=== PATIENT | male | born 1945 | race Caucasian/White ===

== ENCOUNTER 2018-05-24 17:58 | Inpatient (IN) ==
[2018-05-24] MEDS ORDERED: methylPREDNISolone 125 MG/2 ML VIAL IVP ONE (18:00)
[2018-05-24] MEDS ORDERED: Ipratropium/Albuterol Neb 3 ML IH ONE ×2 (18:00→19:05)
[2018-05-24 18:24] LABS: Basophils % 0.5 %; Eosinophils # 0.2 K/mcL (0.0-0.6); Eosinophils % 1.9 %; Hematocrit 40.3 % (37.5-50.1); Hemoglobin 14.1 g/dL (12.9-16.9); Immature Granulocytes % 0.4 % (0-4); Lymphocytes # 1.7 K/mcL (0.6-4.6); Lymphocytes % 20.6 %; Mean Corpuscular Volume 97.1 fL (83.0-100.0); Monocytes # 0.7 K/mcL (0.0-1.3); Monocytes % 7.9 %; Neutrophils # 5.7 K/mcL (1.6-8.9); Platelet Count 158 K/mcL (140-400); Red Blood Count 4.15 M/mcL (4.19-5.50); Red Cell Distribution Width 13.6 % (11.5-14.5); Segmented Neutrophils % 68.7 %
[2018-05-24 18:35] LABS: INR 1.2; Prothrombin Time 13.8 Seconds (9.4-12.1)
--- NOTE | 2018-05-24 18:37 | Emergency Department Note ---
Disposition Clinical Impression: Community acquired pneumonia Qualifiers: Laterality: left Lung location: lower lobe of lung Qualified Code(s): J18.1 - Lobar pneumonia, unspecified organism Disposition: Admitted As Inpatient Condition: Fair Referrals: Nick Erwin MD [Primary Care Provider] - Forms: ED Satisfaction Letter Time of Disposition: 20:02 General Adult HPI - General Stated complaint: fLU LIKE SYMPTOMS Time Seen by Provider: 05/24/18 18:00 Source: patient Mode of arrival: EMS Limitations: no limitations Nursing Notes Reviewed: Yes Vital Signs Reviewed: Yes - History of Present Illness HPI Narrative: Patient is a 73-year-old male presenting with difficulty breathing. Patient was brought in via EMS from home for concern of shortness of breath that is been progressively worsening over the past few days. He has had some myalgias with subjective fevers and chills. Patient reports increased cough with sputum production. Has history of COPD. No abdominal pain, nausea, vomiting. No urinary changes are still changes. Per EMS, patient was satting at 85% on room air, did place him on 2 L nasal cannula, he was brought up to 96. Patient does not wear oxygen at home. Patient did have one episode of emesis while in route, he was given 4 of Zofran. No further nausea or vomiting. Patient denies chest pain, radiation of pain, no back pain, no lightheaded or dizziness. No recent steroid use. He does use his inhalers at home. - Related Data Home Medications Medication Instructions Recorded Confirmed Albuterol Sulfate [Albuterol 2 puff IH QID PRN 02/24/15 03/16/18 Inhaler] Atorvastatin [Lipitor] 40 mg PO HS 02/24/15 03/16/18 Budesonide/Formoterol 160/4.5 2 puff IH BIDR 02/24/15 03/16/18 [Symbicort] Cholecalciferol (Vitamin D3) 2,000 unit PO DAILY 02/24/15 03/16/18 [Vitamin D] Finasteride [Proscar] 5 mg PO DAILY 02/24/15 03/16/18 Levothyroxine [Synthroid] 50 mcg PO DAILY 02/24/15 03/16/18 Omeprazole [PriLOSEC] 20 mg PO DAILY 02/24/15 03/16/18 Tamsulosin [Flomax] 0.4 mg PO DAILY 02/24/15 03/16/18 Cyanocobalamin (Vitamin B-12) 1,000 mcg PO DAILY 03/17/17 03/16/18 [Vitamin B12] Multivitamin [Multivitamins] 1 each PO DAILY 03/17/17 03/16/18 Amantadine [Symmetrel] 100 mg PO BID 03/16/18 03/16/18 Allergies Allergy/AdvReac Type Severity Reaction Status Date / Time No Known Allergies Allergy Verified 03/16/18 11:08 All systems ED: reviewed and negative except as stated. Review of Systems: As Per HPI Constitutional: Reports: fever, chills ENT ED: Denies: congestion Cardiovascular: Reports: dyspnea on exertion. Denies: chest pain, palpitations, syncope Respiratory: Reports: cough, dyspnea, wheezes, sputum production. Denies: hemoptysis Gastrointestinal: Denies: abdominal pain, nausea, vomiting Genitourinary: Denies: urgency Musculoskeletal: Denies: back pain Integumentary: Denies: rash Neurological: Denies: headache, weakness, confusion Endocrine: Denies: fatigue Hematological/Lymphatic: Denies: easy bleeding Past Medical History - Past Medical History Attestation: Yes The following information was validated with the patient. Source: patient Medical history: Reports: asthma, cancer, COPD, dementia, GERD, hyperlipidemia, hypertension Surgical history: Reports: cholecystectomy Psychiatric history: Reports: no psych history - Social History Smoking Status: Former smoker Alcohol use: Reports: none Drug use: Reports: none Physical Exam - General Limitations: no limitations General appearance: alert, in no apparent distress, other (Patient on 2 L nasal cannula, satting at 98%, is conversationally dyspneic) - Head Head exam: atraumatic, normocephalic, normal inspection - Eye Eye exam: Present: normal appearance, PERRL, EOMI - ENT ENT exam: normal exam, normal oropharynx, mucous membranes moist - Neck Neck exam: Present: normal inspection, full ROM, trachea midline - Chest Chest inspection: Present: normal inspection, symmetric chest wall rise - Respiratory Respiratory exam: Present: other (Diffuse rhonchi throughout to the bases bilaterally, with few wheezes, prolonged expiratory phase) - Cardiovascular Cardiovascular exam: Present: regular rate, normal rhythm, normal heart sounds - Abdominal Exam Abdominal exam: Present: soft, Non-Tender. Absent: tenderness, distention, guarding, rebound, rigidity - Extremities Exam Extremities exam: Present: normal inspection, full ROM. Absent: tenderness, pedal edema - Expanded Lower Extremity Exam Neurovascular/Tendon exam: Absent: motor deficit, sensory deficit, tendon deficit - Back Exam Back exam: Present: normal inspection, full ROM. Absent: tenderness - Neurological Exam Neurological exam: Present: alert, oriented X3 - Psychiatric Psychiatric exam: Present: normal affect, normal mood - Skin Skin exam: Present: warm, dry, intact, normal color. Absent: diaphoresis Course Vital Signs Temperature 98 F 05/24/18 18:16 Pulse Rate 95 05/24/18 18:16 Respiratory Rate 16 05/24/18 18:16 Blood Pressure 143/83 05/24/18 18:16 O2 Sat by Pulse Oximetry 96 05/24/18 18:16 Temperature 98 F 05/24/18 18:20 Pulse Rate 128 05/24/18 20:50 Respiratory Rate 20 05/24/18 20:58 Blood Pressure 121/65 05/24/18 20:58 O2 Sat by Pulse Oximetry 97 05/24/18 20:58 Oxygen Delivery Oxygen Delivery Nasal Cannula Medical Decision Making - [facility] Narrative Medical decision making narrative: Patient is a 73-year-old male presenting with difficulty breathing. Patient with history of COPD. Patient was brought in via EMS, given 1 DuoNeb as well as Zofran. On arrival, patient is on 2 L nasal cannula with an oxygen saturation of 98%. He is afebrile and normotensive. He is in no acute distress. Patient was given DuoNeb 3 with Solu-Medrol. Concern for COPD versus pneumonia. Chest x-ray shows left lower lobe pneumonia, patient was started on azithromycin and Rocephin. Patient is not on home oxygen. Influenza was obtained. CBC shows no leukocytosis otherwise blood work is unremarkable. On reevaluation, patient states that he still has some shortness of breath, however has slightly improved following treatment. Patient failed his walk test due to symptoms as well as desaturation down to 84% and weakness. At this point in time, patient will be admitted for pneumonia, with increased oxygen need. We will call the hospitalist at this point in time. - Medical Records Medical records reviewed: Yes I reviewed the patient's medical records. - Lab Data Lab results reviewed: Yes I reviewed the patient's lab results. Result diagrams: 05/24/18 18:14 05/24/18 18:14 Lab Results 05/24/18 05/24/18 05/24/18 Range/Units 18:14 18:14 18:14 WBC 8.3 (4.3-11.1) K/mcL RBC 4.15 L (4.19-5.50) M/mcL Hgb 14.1 (12.9-16.9) g/dL Hct 40.3 (37.5-50.1) % MCV 97.1 (83.0-100.0) fL MCH 34.0 H (28.0-33.3) pg MCHC 35.0 (31.6-35.5) g/dL RDW 13.6 (11.5-14.5) % Plt Count 158 (140-400) K/mcL MPV 9.0 L (9.4-12.4) fL Immature Gran % 0.4 (0-4) % Seg Neutrophils % 68.7 % Lymphocytes % 20.6 % Monocytes % 7.9 % Eosinophils % 1.9 % Basophils % 0.5 % Neutrophils # 5.7 (1.6-8.9) K/mcL Lymphocytes # 1.7 (0.6-4.6) K/mcL Monocytes # 0.7 (0.0-1.3) K/mcL Eosinophils # 0.2 (0.0-0.6) K/mcL Basophils # 0.0 (0.0-0.2) K/mcL PT (9.4-12.1) Seconds INR APTT (26.0-36.0) Seconds Sodium 139 (136-145) mEq/L Potassium 3.6 (3.5-5.1) mEq/L Chloride 104 (98-107) mEq/L Carbon Dioxide 25 (23-29) mEq/L BUN 18 (8-23) mg/dL Creatinine 1.11 (0.70-1.30) mg/dL Est GFR ( Amer) > 60 (> 60) Est GFR (Non-Af Amer) > 60 (> 60) BUN/Creatinine Ratio 16 (6-26) Glucose 169 H (70-105) mg/dL Calculated Osmolality 294 (280-300) Lactic Acid 2.1 (0.5-2.2) mmol/L Calcium 9.0 (8.6-10.3) mg/dL Troponin I < 0.03 (< 0.04) ng/mL B-Natriuretic Peptide (Less than 100) pg/mL 05/24/18 05/24/18 05/24/18 Range/Units 18:14 18:14 19:58 WBC (4.3-11.1) K/mcL RBC (4.19-5.50) M/mcL Hgb (12.9-16.9) g/dL Hct (37.5-50.1) % MCV (83.0-100.0) fL MCH (28.0-33.3) pg MCHC (31.6-35.5) g/dL RDW (11.5-14.5) % Plt Count (140-400) K/mcL MPV (9.4-12.4) fL Immature Gran % (0-4) % Seg Neutrophils % % Lymphocytes % % Monocytes % % Eosinophils % % Basophils % % Neutrophils # (1.6-8.9) K/mcL Lymphocytes # (0.6-4.6) K/mcL Monocytes # (0.0-1.3) K/mcL Eosinophils # (0.0-0.6) K/mcL Basophils # (0.0-0.2) K/mcL PT 13.8 H (9.4-12.1) Seconds INR 1.2 APTT 29.9 (26.0-36.0) Seconds Sodium (136-145) mEq/L Potassium (3.5-5.1) mEq/L Chloride (98-107) mEq/L Carbon Dioxide (23-29) mEq/L BUN (8-23) mg/dL Creatinine (0.70-1.30) mg/dL Est GFR ( Amer) (> 60) Est GFR (Non-Af Amer) (> 60) BUN/Creatinine Ratio (6-26) Glucose (70-105) mg/dL Calculated Osmolality (280-300) Lactic Acid 1.5 (0.5-2.2) mmol/L Calcium (8.6-10.3) mg/dL Troponin I (< 0.04) ng/mL B-Natriuretic Peptide 25 (Less than 100) pg/mL - Radiology Data Radiology results reviewed: Yes I reviewed the patient's radiology results. Chest X-Ray 05/24/18 18:00 IMPRESSION: Atelectasis versus pneumonia in the left lung base D/ / Sean Shannon MD / Sean Shannon MD Interpreting Provider: Sean Shannon MD - EKG Data EKG #1 EKG attestation: Yes I reviewed and interpreted this EKG. EKG results narrative: EKG performed at 1806 a ventricular rate of 91, regular rhythm, normal axis, no ST segment elevation or depression S.B.A.R. - S.B.A.R. Situation: Demographics, MOA Background: Presenting Complaint, Relevant PMH, Meds, & Allergies Assessment: Vital Signs, Course and respsone to treatment, Exam Concerns, Patient/Family Expectation, Pertinant Lab Results, Outstanding Labs Recommendation: Barrier(s) to disposition, Recommendation based on pending studies, treatments, or consults S.B.A.R. Report Given to: Dr. Harmon [email or web address] Repor Time: 21:22 (accepted)
[2018-05-24 18:38] LABS: Activated Partial Thrombo Time 29.9 Seconds (26.0-36.0)
[2018-05-24 18:48] LABS: BUN/Creatinine Ratio 16 (6-26); Blood Urea Nitrogen 18 mg/dL (8-23); Carbon Dioxide 25 mEq/L (23-29); Chloride 104 mEq/L (98-107); Glucose 169 mg/dL (70-105); Osmolality,Calculated 294 (280-300); Potassium 3.6 mEq/L (3.5-5.1); Sodium 139 mEq/L (136-145); Troponin I < 0.03 ng/mL (< 0.04); eGFR For Non-African Americans > 60 (> 60)
--- NOTE | 2018-05-24 18:56 | Emergency Department Note ---
Disposition Clinical Impression: Community acquired pneumonia Qualifiers: Laterality: left Lung location: lower lobe of lung Qualified Code(s): J18.1 - Lobar pneumonia, unspecified organism Disposition: Still a Patient Referrals: Nick Erwin MD [Primary Care Provider] - General Adult HPI - General Chief complaint: ED Chest Pain Stated complaint: cp Time Seen by Provider: 05/24/18 18:00 Source: patient Mode of arrival: EMS Limitations: no limitations Nursing Notes Reviewed: Yes Vital Signs Reviewed: Yes - History of Present Illness HPI Narrative: Attestation note: Patient was seen with the emergency medicine resident/nurse pra ctitioner/physician orthopedic assistant/transitional resident/medical student: Dr. Mariluz Villasenor I have personally performed a face to face evaluation on this patient. I have reviewed and agree with history and physical examination patient management and disposition. Briefly the salient points of the case are as follows: 73-year-old male history of COPD by EMS for "chest". Patient presents with shortness of breath he was having low sats in the mid 80s WITH oxygen and do an echo to hear rhonchi as well chest x-ray read radiology left lower lobe pneumonia patient's troponin and labs otherwise normal limits EKG shows no acute ischemic changes patient is getting antibiotics admission likely although disposition pending. Pain Scale: 9 - Related Data Home Medications Medication Instructions Recorded Confirmed Albuterol Sulfate [Albuterol 2 puff IH QID PRN 02/24/15 03/16/18 Inhaler] Atorvastatin [Lipitor] 40 mg PO HS 02/24/15 03/16/18 Budesonide/Formoterol 160/4.5 2 puff IH BIDR 02/24/15 03/16/18 [Symbicort] Cholecalciferol (Vitamin D3) 2,000 unit PO DAILY 02/24/15 03/16/18 [Vitamin D] Finasteride [Proscar] 5 mg PO DAILY 02/24/15 03/16/18 Levothyroxine [Synthroid] 50 mcg PO DAILY 02/24/15 03/16/18 Omeprazole [PriLOSEC] 20 mg PO DAILY 02/24/15 03/16/18 Tamsulosin [Flomax] 0.4 mg PO DAILY 02/24/15 03/16/18 Cyanocobalamin (Vitamin B-12) 1,000 mcg PO DAILY 03/17/17 03/16/18 [Vitamin B12] Multivitamin [Multivitamins] 1 each PO DAILY 03/17/17 03/16/18 Amantadine [Symmetrel] 100 mg PO BID 03/16/18 03/16/18 Allergies Allergy/AdvReac Type Severity Reaction Status Date / Time No Known Allergies Allergy Verified 03/16/18 11:08 Constitutional: Reports: fever, chills ENT ED: Denies: congestion Cardiovascular: Reports: dyspnea on exertion. Denies: chest pain, palpitations, syncope Respiratory: Reports: cough, dyspnea, wheezes, sputum production. Denies: hemoptysis Gastrointestinal: Denies: abdominal pain, nausea, vomiting Genitourinary: Denies: urgency Musculoskeletal: Denies: back pain Integumentary: Denies: rash Neurological: Denies: headache, weakness, confusion Endocrine: Denies: fatigue Hematological/Lymphatic: Denies: easy bleeding Past Medical History - Past Medical History Medical history: Reports: asthma, cancer, COPD, dementia, GERD, hyperlipidemia, hypertension Surgical history: Reports: cholecystectomy Psychiatric history: Reports: no psych history - Social History Smoking Status: Former smoker Smokeless Tobacco Status: No Alcohol use: Reports: none Drug use: Reports: none Physical Exam - General Limitations: no limitations General appearance: alert, in no apparent distress Course Vital Signs Temperature 98 F 05/24/18 18:16 Pulse Rate 95 05/24/18 18:16 Respiratory Rate 16 05/24/18 18:16 Blood Pressure 143/83 05/24/18 18:16 O2 Sat by Pulse Oximetry 96 05/24/18 18:16 Temperature 98 F 05/24/18 18:20 Pulse Rate 95 05/24/18 18:20 Respiratory Rate 22 05/24/18 18:43 Blood Pressure 143/83 05/24/18 18:20 O2 Sat by Pulse Oximetry 97 05/24/18 18:43 Oxygen Delivery Oxygen Delivery Nasal Cannula Medical Decision Making - Lab Data Result diagrams: 05/24/18 18:14 05/24/18 18:14 Lab Results 05/24/18 05/24/18 05/24/18 Range/Units 18:14 18:14 18:14 WBC 8.3 (4.3-11.1) K/mcL RBC 4.15 L (4.19-5.50) M/mcL Hgb 14.1 (12.9-16.9) g/dL Hct 40.3 (37.5-50.1) % MCV 97.1 (83.0-100.0) fL MCH 34.0 H (28.0-33.3) pg MCHC 35.0 (31.6-35.5) g/dL RDW 13.6 (11.5-14.5) % Plt Count 158 (140-400) K/mcL MPV 9.0 L (9.4-12.4) fL Immature Gran % 0.4 (0-4) % Seg Neutrophils % 68.7 % Lymphocytes % 20.6 % Monocytes % 7.9 % Eosinophils % 1.9 % Basophils % 0.5 % Neutrophils # 5.7 (1.6-8.9) K/mcL Lymphocytes # 1.7 (0.6-4.6) K/mcL Monocytes # 0.7 (0.0-1.3) K/mcL Eosinophils # 0.2 (0.0-0.6) K/mcL Basophils # 0.0 (0.0-0.2) K/mcL PT (9.4-12.1) Seconds INR APTT (26.0-36.0) Seconds Sodium 139 (136-145) mEq/L Potassium 3.6 (3.5-5.1) mEq/L Chloride 104 (98-107) mEq/L Carbon Dioxide 25 (23-29) mEq/L BUN 18 (8-23) mg/dL Creatinine 1.11 (0.70-1.30) mg/dL Est GFR ( Amer) > 60 (> 60) Est GFR (Non-Af Amer) > 60 (> 60) BUN/Creatinine Ratio 16 (6-26) Glucose 169 H (70-105) mg/dL Calculated Osmolality 294 (280-300) Lactic Acid 2.1 (0.5-2.2) mmol/L Calcium 9.0 (8.6-10.3) mg/dL Troponin I < 0.03 (< 0.04) ng/mL 05/24/18 Range/Units 18:14 WBC (4.3-11.1) K/mcL RBC (4.19-5.50) M/mcL Hgb (12.9-16.9) g/dL Hct (37.5-50.1) % MCV (83.0-100.0) fL MCH (28.0-33.3) pg MCHC (31.6-35.5) g/dL RDW (11.5-14.5) % Plt Count (140-400) K/mcL MPV (9.4-12.4) fL Immature Gran % (0-4) % Seg Neutrophils % % Lymphocytes % % Monocytes % % Eosinophils % % Basophils % % Neutrophils # (1.6-8.9) K/mcL Lymphocytes # (0.6-4.6) K/mcL Monocytes # (0.0-1.3) K/mcL Eosinophils # (0.0-0.6) K/mcL Basophils # (0.0-0.2) K/mcL PT 13.8 H (9.4-12.1) Seconds INR 1.2 APTT 29.9 (26.0-36.0) Seconds Sodium (136-145) mEq/L Potassium (3.5-5.1) mEq/L Chloride (98-107) mEq/L Carbon Dioxide (23-29) mEq/L BUN (8-23) mg/dL Creatinine (0.70-1.30) mg/dL Est GFR ( Amer) (> 60) Est GFR (Non-Af Amer) (> 60) BUN/Creatinine Ratio (6-26) Glucose (70-105) mg/dL Calculated Osmolality (280-300) Lactic Acid (0.5-2.2) mmol/L Calcium (8.6-10.3) mg/dL Troponin I (< 0.04) ng/mL
[2018-05-24] MEDS ORDERED: Azithromycin 500 MG in D5% in Water 250 ML IVPB ONE (19:01)
[2018-05-24] MEDS ORDERED: cefTRIAXone 1,000 MG in Water for inj. (sterile) 20 ML 10 ML IVP ONE (19:01)
[2018-05-25] MEDS ORDERED: Naloxone 0.4 MG/ML INJ IVP PRN (05:43)
[2018-05-25] MEDS ORDERED: Albuterol 2.5 MG/3 ML NEBULIZER IH PRN (05:46)
--- NOTE | 2018-05-25 05:52 | Internal Med History&Physical ---
Date of Encounter: 05/25/18 Time of Encounter: 03:57 Internal Medicine - H&P: HPI Chief complaint: Left lower lobe pneumonia Admitted From: Emergency Dept Plans for Post Hospital Care: Home History of present illness: Mr. Auguste is a 73 year old male Patient presented to the emergency room for difficulty breathing he called emergency medical services as he became more short of breath that has been progressing over the last few days he also states that he has had fevers and chills at home. Has had increased sputum production with his cough and has a history of COPD. Upon arrival EMS noted that patient's room air saturation was 85% and is placed on 2 L nasal cannula and he improved to 96%. He is not typically wear home oxygen. Patient vomited once en route to the emergency room, and was given 4 mg of Zofran. In the emergency room patient's CBC and BMP were both within normal limits. Patient's vital signs were stable. Patient's initial lactic acid was 2.1 which improved to 1.5 with IV fluids. Patient's initial troponin was undetectable and patient's BNP was 25. Patient's chest x-ray showed atelectasis versus pneumonia in the left lung base. Patient was given azithromycin and ceftriaxone prior to blood cultures being drawn, and was sent to the medical floor for further management. Upon my evaluation, patient is resting comfortably in the hospital bed, he denies chest pain, abdominal pain, nausea, vomiting, diarrhea and constipation. His main complaint currently is thirst. He states he has had a cough for about a week, and denies sick contacts. Past Med Surg Social Fam HX - Past Medical History Medical history: asthma, cancer, COPD, dementia, GERD, hyperlipidemia, hypertension, thyroid disease Additional medical history: Thyroid. Testicular Cancer, parkinson Psychiatric history: no psych history - Past Surgical History Surgical History: cholecystectomy Additional surgical history: Tonils. Orchiectomy. Testicular CA - Social History Smoking Status: Former smoker Smokeless Tobacco Status: No Alcohol use: none Drug use: none - Family History Father Living Status: Hx Family Cancer: Yes Hx Family GI Disorders: Yes Internal Medicine - H&P: Meds Albuterol Sulfate [Albuterol Inhaler] 2 puff IH QID PRN 02/24/15 [History] Atorvastatin [Lipitor] 40 mg PO HS 02/24/15 [History] Budesonide/Formoterol 160/4.5 [Symbicort] 2 puff IH BIDR 02/24/15 [History] Cholecalciferol (Vitamin D3) [Vitamin D] 2,000 unit PO DAILY 02/24/15 [History] Finasteride [Proscar] 5 mg PO DAILY 02/24/15 [History] Levothyroxine [Synthroid] 50 mcg PO DAILY 02/24/15 [History] Omeprazole [PriLOSEC] 20 mg PO DAILY 02/24/15 [History] Tamsulosin [Flomax] 0.4 mg PO DAILY 02/24/15 [History] Cyanocobalamin (Vitamin B-12) [Vitamin B12] 1,000 mcg PO DAILY 03/17/17 [History] Multivitamin [Multivitamins] 1 each PO DAILY 03/17/17 [History] Amantadine [Symmetrel] 100 mg PO BID 03/16/18 [History] Allergy/AdvReac Type Severity Reaction Status Date / Time No Known Allergies Allergy Verified 03/16/18 11:08 All Systems PM: A 10-system review of systems was performed and is negative for pertinent find ings except as documented above in the HPI. - Constitutional Vitals: Temp Pulse Resp BP Pulse Ox 97.4 F L 75 18 133/78 96 05/25/18 03:44 05/25/18 03:44 05/25/18 03:44 05/25/18 03:44 05/25/18 03:44 General appearance: Present: cooperative, A&O X 3, pleasant, no acute distress, answers questions appropriately Exam: - - Head Head exam: Present: normal inspection - Eye Eye exam: Present: EOMI, normal appearance - Respiratory Respiratory exam: Present: wheezes. Absent: CTAB, rales, respiratory distress, rhonchi - Cardiovascular Cardiovascular exam: Present: RRR. Absent: diastolic murmur, systolic murmur - GI/Abdominal GI/Abdominal exam: Present: normal bowel sounds, soft. Absent: tenderness - Extremities Exam Extremities exam: Present: warm, radial pulses palpable and symmetrical. Absent: calf tenderness, pedal edema, tenderness - Neurological Exam Neurological exam: Present: no focal deficits, strengths equal and symetr throughout. Absent: motor sensory deficit, facial droop, speech deficit - Skin Skin exam: Present: dry, normal color, warm Internal Med - H&P Results - Labs CBC & Chem 7: 05/24/18 18:14 05/24/18 18:14 Labs: Short CBC 05/24/18 Range/Units 18:14 WBC 8.3 (4.3-11.1) K/mcL Hgb 14.1 (12.9-16.9) g/dL Hct 40.3 (37.5-50.1) % Plt Count 158 (140-400) K/mcL Neutrophils # 5.7 (1.6-8.9) K/mcL BMP 05/24/18 18:14 Sodium 139 Potassium 3.6 Chloride 104 Carbon Dioxide 25 BUN 18 Creatinine 1.11 Glucose 169 H Calcium 9.0 Cardiac Enzymes 05/24/18 Range/Units 18:14 Troponin I < 0.03 (< 0.04) ng/mL - Impressions ITS Impressions Chest X-Ray 05/24/18 18:00 IMPRESSION: Atelectasis versus pneumonia in the left lung base D/ / Sean Shannon MD / Sean Shannon MD Interpreting Provider: Sean Shannon MD - Assessment and plan (1) Community acquired pneumonia Current Visit: Yes Status: Acute Assessment and plan: Patient started on antibiotics in the emergency room for possible pneumonia in the left lower lobe as seen on chest x-ray. Blood cultures were not drawn prior to antibiotics. Continue IV antibiotics Monitor for worsening signs of infection Continue oxygen supplementation as needed Qualifiers: Laterality: left Lung location: lower lobe of lung Qualified Code(s): J18.1 - Lobar pneumonia, unspecified organism (2) Acute respiratory failure with hypoxia Current Visit: Yes Status: Acute Assessment and plan: patient does not wear oxygen at home and was hypoxic upon EMS arrival to his home. Oxygen supplementation as needed Wean as tolerated (3) COPD (chronic obstructive pulmonary disease) Current Visit: Yes Status: Acute Assessment and plan: Patient has history of COPD, and was wheezy on exam. Continue breathing treatments and steroids Treating pneumonia as above Qualifiers: COPD type: COPD with acute lower respiratory infection Qualified Code(s): J44.0 - Chronic obstructive pulmonary disease with acute lower respiratory infection (4) Hypothyroidism Current Visit: Yes Status: Acute Assessment and plan: Continue home medicine Qualifiers: Hypothyroidism type: unspecified Qualified Code(s): E03.9 - Hypothyroidism, unspecified (5) DVT prophylaxis Current Visit: Yes Status: Acute Assessment and plan: Subcutaneous heparin - Time Spent With Patient Total time spent is greater than 50% in coordination of care (as documented) at patient's floor/unit and/or counseling patient: Greater than 35 minutes
[2018-05-25 06:59] LABS: Hematocrit 37.4 % (37.5-50.1); Hemoglobin 13.3 g/dL (12.9-16.9); Mean Corpuscular HGB Conc 35.6 g/dL (31.6-35.5); Mean Corpuscular Hemoglobin 34.2 pg (28.0-33.3); Mean Corpuscular Volume 96.1 fL (83.0-100.0); Platelet Count 135 K/mcL (140-400); Red Blood Count 3.89 M/mcL (4.19-5.50); Red Cell Distribution Width 13.5 % (11.5-14.5)
[2018-05-25 07:19] LABS: BUN/Creatinine Ratio 17 (6-26); Blood Urea Nitrogen 15 mg/dL (8-23); Calcium 9.2 mg/dL (8.6-10.3); Carbon Dioxide 27 mEq/L (23-29); Chloride 105 mEq/L (98-107); Glucose 145 mg/dL (70-105); Osmolality,Calculated 291 (280-300); Potassium 3.9 mEq/L (3.5-5.1); Sodium 139 mEq/L (136-145); eGFR For Non-African Americans > 60 (> 60)
[2018-05-25] MEDS: predniSONE 20 MG TABLET PO SCH (09:29)
[2018-05-25] MEDS: cefTRIAXone 1,000 MG in Water for inj. (sterile) 20 ML 10 ML IVP SCH (09:29)
[2018-05-25] MEDS: Ipratropium/Albuterol Neb 3 ML IH SCH ×3 (10:51→23:09)
--- NOTE | 2018-05-25 15:16 | Event Note ---
Date of Encounter: 05/25/18 Time of Encounter: 15:05 Seen and examined at bedside. Patient is new to me, information obtained from chart review and patient report. Patient was seen earlier today by nocturnal hospitalist. Pain in bed, appears comfortable. Still having some shortness of breath and chest congestion but overall improved. denied chest pain, cough is nonproductive. Alert and oriented 4, adequately oxygenating on supplemental O2. Lung sounds diminished and tight with scattered wheezing/rhonchi. Acute respiratory failure: most likely secondary to pneumonia/COPD. Cont treating underlying cause. Wean O2 as able. Consider chest CT if unable to wean oxygen or respiratory status worsens Pneumonia of unspecified organism: CXR concerning for LLL pneumonia. Continue IV ceftriaxone and Rocephin. Respiratory PCR and urinary antigens pending Acute COPD exacerbation: Suspected with SOB, cough and wheezing. Continue ATB, steroids and DuoNeb's. Hypothyroidism: Per history. Continue home levothyroxine DVT prophylaxis: Lovenox
[2018-05-25] MEDS ORDERED: *HR* Heparin 5,000 UNIT/ML VIAL SQ SCH (18:00)
[2018-05-25] MEDS: Azithromycin 500 MG in D5% in Water 250 ML IVPB SCH (20:35)
[2018-05-25 21:58] LABS: Adenovirus Not Detected (Not Detect); Bordetella Pertussis Not Detected (Not Detect); Chlamydophila pneumoniae Not Detected (Not Detect); Coronavirus 229E Not Detected (Not Detect); Coronavirus HKU1 Not Detected (Not Detect); Coronavirus NL63 Not Detected (Not Detect); Coronavirus OC43 Not Detected (Not Detect); Human Metapneumovirus Not Detected (Not Detect); Human Rhinovirus/Enterovirus Not Detected (Not Detect); Influenza A Subtype 2009 H1 Not Detected (Not Detect); Influenza A Untypeable Not Detected (Not Detect); Influenza B Not Detected (Not Detect); Mycoplasma pneumoniae Not Detected (Not Detect); Parainfluenza Virus 1 Not Detected (Not Detect); Parainfluenza Virus 2 Not Detected (Not Detect); Parainfluenza Virus 3 Not Detected (Not Detect); Parainfluenza Virus 4 Not Detected (Not Detect); Respiratory Syncytial Virus DETECTED (Not Detect)
[2018-05-26] MEDS: Ipratropium/Albuterol Neb 3 ML IH SCH ×4 (04:58→22:29)
[2018-05-26] MEDS: *HR* Enoxaparin 40 MG/0.4 ML SYRINGE SQ SCH (05:46)
[2018-05-26] MEDS: Levothyroxine 25 MCG TABLET PO SCH (05:46)
[2018-05-26 06:41] LABS: Hematocrit 35.3 % (37.5-50.1); Hemoglobin 12.4 g/dL (12.9-16.9); Mean Corpuscular HGB Conc 35.1 g/dL (31.6-35.5); Mean Corpuscular Hemoglobin 34.3 pg (28.0-33.3); Mean Corpuscular Volume 97.5 fL (83.0-100.0); Mean Platelet Volume 9.4 fL (9.4-12.4); Platelet Count 156 K/mcL (140-400); Red Blood Count 3.62 M/mcL (4.19-5.50); Red Cell Distribution Width 13.4 % (11.5-14.5)
[2018-05-26 07:03] LABS: BUN/Creatinine Ratio 20 (6-26); Blood Urea Nitrogen 19 mg/dL (8-23); Carbon Dioxide 25 mEq/L (23-29); Chloride 106 mEq/L (98-107); Glucose 149 mg/dL (70-105); Osmolality,Calculated 295 (280-300); Potassium 3.4 mEq/L (3.5-5.1); Sodium 140 mEq/L (136-145); eGFR For Non-African Americans > 60 (> 60)
[2018-05-26] MEDS: predniSONE 20 MG TABLET PO SCH (08:34)
[2018-05-26] MEDS: Finasteride 5 MG TABLET PO SCH (08:35)
[2018-05-26] MEDS: cefTRIAXone 1,000 MG in Water for inj. (sterile) 20 ML 10 ML IVP SCH (08:35)
--- NOTE | 2018-05-26 12:42 | Electrocardiograph Report ---
[place] [address] [place], [place] [address] Test Date: 2018-05-24 Pat Name: [facility] Department: [id number] Room: [facility] Gender: M Licensed Master Social Worker: : 1945 Requested By: Malgorzata Terry Order Number: [id number] Reading MD: Sendy Garland Measurements Intervals [place] Rate: 91 P: 26 ID: [id number] QRS: 6 QRSD: 106 T: 71 QT: 362 QTc: 446 Interpretive Statements Sinus rhythm Electronically Signed On 05-26-2018 12:40:55 EST by Sendy Garland
--- NOTE | 2018-05-26 18:21 | Internal Med Progress Note ---
Hospitalist Progress Note - Encounter Date of Encounter: 05/26/18 Time of Encounter: 08:30 - Subjective Interval History: Patient seen and examined at bedside. Patient states that he feels slightly better. He reports that he has a mild dry cough. He feels like his breathing is improved. He denies fever or chills. - Exam Vitals: Temp Pulse Resp BP Pulse Ox 98.4 F 79 16 142/80 94 05/26/18 14:20 05/26/18 14:20 05/26/18 16:06 05/26/18 14:20 05/26/18 16:06 Exam: Gen.: Alert and oriented 3, no acute distress Heart: Regular rate and rhythm, no murmurs, rubs, gallops Lungs: Mild diffuse tenderness, or wheezes, no rales, rhonchi Abdomen: Soft, nontender, nondistended. Normoactive bowel sounds - Assessment and Plan (1) Acute respiratory failure with hypoxia Current Visit: Yes Status: Acute Assessment and Plan: Secondary to community acquired pneumonia and RSV. Seems to be recovering well, is down to 1 L and is satting in the mid 90s, we will attempt to wean off completely. Continue oxygen supplementation to maintain saturation greater than 90%. (2) COPD exacerbation Current Visit: Yes Status: Acute Assessment and Plan: Secondary to pneumonia and RSV infection. Mild diffuse wheezes on exam. Continue antibiotics with Rocephin and Zithromax, steroids with prednisone 40 mg daily, and scheduled bronchodilators. (3) RSV (respiratory syncytial virus infection) Current Visit: Yes Status: Acute Assessment and Plan: Respiratory infection panel positive for RSV. Likely contributing to the patient's respiratory complaints. Concerned about superimposed pneumonia as below. Continue supportive care. (4) Community acquired pneumonia Current Visit: Yes Status: Acute Assessment and Plan: Chest x-ray reviewed and shows mild opacification in the left lower lobe concerning for atelectasis versus pneumonia. Given the patient's clinical symptoms and RSV infection and concern for superimposed pneumonia. We will continue with ceftriaxone and azithromycin for antimicrobial coverage. (5) Hypothyroidism Current Visit: Yes Status: Acute Assessment and Plan: Continue Synthroid. (6) DVT prophylaxis Current Visit: Yes Status: Acute Assessment and Plan: Lovenox 40 mg daily - Time Spent with Patient Total time spent is greater than 50% in coordination of care (as documented) at patient's floor/unit and/or counseling patient: Internal Medicine: Result - Labs CBC & Chem 7: 05/26/18 05:53 05/26/18 05:53 Labs: Short CBC 05/26/18 Range/Units 05:53 WBC 7.6 (4.3-11.1) K/mcL Hgb 12.4 L (12.9-16.9) g/dL Hct 35.3 L (37.5-50.1) % Plt Count 156 (140-400) K/mcL BMP 05/26/18 05:53 Sodium 140 Potassium 3.4 L Chloride 106 Carbon Dioxide 25 BUN 19 Creatinine 0.95 Glucose 149 H Calcium 9.0 - ABG Interpretation ABG results: PT/INR, D-dimer PT 13.8 Seconds (9.4-12.1) H 05/24/18 18:14 Consult Discharge Plan - Plan Referrals: Nick Erwin MD [Primary Care Provider] - (4) Community acquired pneumonia Qualifiers: Laterality: left Lung location: lower lobe of lung Qualified Code(s): J18.1 - Lobar pneumonia, unspecified organism (5) Hypothyroidism Qualifiers: Hypothyroidism type: unspecified Qualified Code(s): E03.9 - Hypothyroidism, unspecified
[2018-05-26] MEDS: Azithromycin 500 MG in D5% in Water 250 ML IVPB SCH (20:11)
[2018-05-27] MEDS ORDERED: hydrALAZINE 10 MG TABLET PO ONE (01:41)
[2018-05-27] MEDS: Ipratropium/Albuterol Neb 3 ML IH SCH ×4 (04:36→22:25)
[2018-05-27] MEDS: Levothyroxine 25 MCG TABLET PO SCH (05:14)
[2018-05-27] MEDS: *HR* Enoxaparin 40 MG/0.4 ML SYRINGE SQ SCH (05:15)
[2018-05-27 06:25] LABS: Hematocrit 38.1 % (37.5-50.1); Hemoglobin 13.4 g/dL (12.9-16.9); Mean Corpuscular HGB Conc 35.2 g/dL (31.6-35.5); Mean Corpuscular Hemoglobin 34.3 pg (28.0-33.3); Mean Corpuscular Volume 97.4 fL (83.0-100.0); Mean Platelet Volume 9.1 fL (9.4-12.4); Platelet Count 156 K/mcL (140-400); Red Blood Count 3.91 M/mcL (4.19-5.50); Red Cell Distribution Width 13.5 % (11.5-14.5)
[2018-05-27 06:44] LABS: BUN/Creatinine Ratio 20 (6-26); Blood Urea Nitrogen 17 mg/dL (8-23); Calcium 9.5 mg/dL (8.6-10.3); Carbon Dioxide 28 mEq/L (23-29); Chloride 105 mEq/L (98-107); Glucose 106 mg/dL (70-105); Osmolality,Calculated 294 (280-300); Potassium 3.9 mEq/L (3.5-5.1); Sodium 141 mEq/L (136-145); eGFR For Non-African Americans > 60 (> 60)
[2018-05-27] MEDS: cefTRIAXone 1,000 MG in Water for inj. (sterile) 20 ML 10 ML IVP SCH (09:24)
[2018-05-27] MEDS: Finasteride 5 MG TABLET PO SCH (09:24)
[2018-05-27] MEDS: predniSONE 20 MG TABLET PO SCH (09:24)
--- NOTE | 2018-05-27 14:57 | Discharge Summary ---
- NOTES TO OUTPATIENT PROVIDER Notes to Outpatient Provider: PCP 2- 5 days Orders not resulted at time of discharge: Pending orders 05/28/18 04:00 BMP [Basic Metabolic Panel] AM 0400 Complete Blood Count w/o Diff [HEME] AM 0400 05/29/18 04:00 BMP [Basic Metabolic Panel] AM 0400 Complete Blood Count w/o Diff [HEME] AM 0400 05/30/18 04:00 BMP [Basic Metabolic Panel] AM 0400 Complete Blood Count w/o Diff [HEME] AM 0400 Date of Encounter: 05/27/18 Time of Encounter: 14:55 - Discharge Diagnosis (1) COPD (chronic obstructive pulmonary disease) Priority: Primary Status: Acute Qualifiers: COPD type: COPD with acute lower respiratory infection Qualified Code(s): J44.0 - Chronic obstructive pulmonary disease with acute lower respiratory infection Hospital course: Mr. Auguste is a 73 year old male Patient presented to the emergency room for difficulty breathing he called emergency medical services as he became more short of breath that has been progressing over the last few days he also states that he has had fevers and chills at home. Has had increased sputum production with his cough and has a history of COPD. Upon arrival EMS noted that patient's room air saturation was 85% and is placed on 2 L nasal cannula and he improved to 96%. He is not typically wear home oxygen. Patient vomited once en route to the emergency room, and was given 4 mg of Zofran. In the emergency room patient's CBC and BMP were both within normal limits. Patient's vital signs were stable. Patient's initial lactic acid was 2.1 which improved to 1.5 with IV fluids. Patient's initial troponin was undetectable and patient's BNP was 25. Patient's chest x-ray showed atelectasis versus pn eumonia in the left lung base. Patient was given azithromycin and ceftriaxone prior to blood cultures being drawn, and was sent to the medical floor for further management. Pt was kept in the hospital and pt was found to have RSV qiu, pt was diagnosed with viral pna, pt doesn't show symtpoms of bacterila lpna. No other issues, await PT to see pt, if pt is not qualified for rehab, then pt will be discharged. Time: 35min Time spent discussing smoking cessation with patient: more than 10 minutes - Time Spent with Patient Total time spent providing and/or coordinating discharge services: - Discharge Medications Prescriptions: Amoxicillin/Clavulanate [Augmentin] 875 mg PO BIDWM #14 tablet Home Medications: Albuterol Sulfate [Albuterol Inhaler] 2 puff IH QID PRN 02/24/15 [History] Atorvastatin [Lipitor] 40 mg PO HS 02/24/15 [History] Budesonide/Formoterol 160/4.5 [Symbicort] 2 puff IH BIDR 02/24/15 [History] Cholecalciferol (Vitamin D3) [Vitamin D] 2,000 unit PO DAILY 02/24/15 [History] Finasteride [Proscar] 5 mg PO DAILY 02/24/15 [History] Levothyroxine [Synthroid] 50 mcg PO DAILY 02/24/15 [History] Omeprazole [PriLOSEC] 20 mg PO DAILY 02/24/15 [History] Tamsulosin [Flomax] 0.4 mg PO DAILY 02/24/15 [History] Cyanocobalamin (Vitamin B-12) [Vitamin B12] 1,000 mcg PO DAILY 03/17/17 [History] Multivitamin [Multivitamins] 1 each PO DAILY 03/17/17 [History] Amantadine [Symmetrel] 100 mg PO BID 03/16/18 [History] Amoxicillin/Clavulanate [Augmentin] 875 mg PO BIDWM #14 tablet 05/27/18 [Rx] Allergies/Adverse Reactions: Allergy/AdvReac Type Severity Reaction Status Date / Time No Known Allergies Allergy Verified 03/16/18 11:08 Date of admission: 05/25/18 17:44 Primary care physician: Nick Erwin MD Consults: 05/25/18 05:46 Consult to Nurse Navigator [CONS] Routine Comment: 05/25/18 11:48 Consult to Nurse Navigator [CONS] Routine Comment: Pneumonia, COPD 05/26/18 12:23 Consult to Occupational Therapy [CONS] Routine Comment: Evaluate, develop and implement POC Reason for Consult: Weakness Does patient have active BEDREST order?: No Is patient medically & hemodynamically stable?: Yes Consult to Physical Therapy [CONS] Routine Comment: Evaluate, develop and implement POC Reason for Consult: Weakness Does patient have active BEDREST order?: No Is patient medically & hemodynamically stable?: Yes - Constitutional Vitals: Temp Pulse Resp BP Pulse Ox 98.4 F 85 17 129/72 94 05/27/18 10:53 05/27/18 10:53 05/27/18 10:53 05/27/18 10:53 05/27/18 10:53 General appearance: Present: cooperative, A&O X 3, pleasant, no acute distress, answers questions appropriately Exam: Gen.: Alert and oriented 3, no acute distress Heart: Regular rate and rhythm, no murmurs, rubs, gallops Lungs: Mild diffuse tenderness, or wheezes, no rales, rhonchi Abdomen: Soft, nontender, nondistended. Normoactive bowel sounds - Patient Status Disposition: Home, Self-Care Condition: Fair - Discharge Instructions Follow Up With: Nick Erwin MD [Primary Care Provider] -
[2018-05-27] MEDS: Azithromycin 500 MG in D5% in Water 250 ML IVPB SCH (21:31)
[2018-05-28] MEDS: Ipratropium/Albuterol Neb 3 ML IH SCH ×2 (04:07→10:26)
[2018-05-28] MEDS: *HR* Enoxaparin 40 MG/0.4 ML SYRINGE SQ SCH (05:44)
[2018-05-28] MEDS: Levothyroxine 25 MCG TABLET PO SCH (05:44)
[2018-05-28] MEDS ORDERED: Azithromycin 250 MG TABLET PO SCH (09:00)
[2018-05-28] MEDS: predniSONE 20 MG TABLET PO SCH (09:51)
[2018-05-28] MEDS: Finasteride 5 MG TABLET PO SCH (09:52)
[2018-05-28] MEDS: cefTRIAXone 1,000 MG in Water for inj. (sterile) 20 ML 10 ML IVP SCH (09:52)
[2018-05-28 10:57] LABS: Hematocrit 36.9 % (37.5-50.1); Mean Corpuscular HGB Conc 35.2 g/dL (31.6-35.5); Mean Corpuscular Hemoglobin 33.7 pg (28.0-33.3); Mean Corpuscular Volume 95.6 fL (83.0-100.0); Mean Platelet Volume 8.9 fL (9.4-12.4); Platelet Count 185 K/mcL (140-400); Red Blood Count 3.86 M/mcL (4.19-5.50); Red Cell Distribution Width 13.3 % (11.5-14.5)
[2018-05-28 11:18] LABS: BUN/Creatinine Ratio 22 (6-26); Blood Urea Nitrogen 21 mg/dL (8-23); Calcium 9.7 mg/dL (8.6-10.3); Carbon Dioxide 31 mEq/L (23-29); Chloride 101 mEq/L (98-107); Glucose 87 mg/dL (70-105); Osmolality,Calculated 290 (280-300); Potassium 3.7 mEq/L (3.5-5.1); Sodium 139 mEq/L (136-145); eGFR For Non-African Americans > 60 (> 60)
[2018-05-28 15:32] VITALS: BP 147/79
--- NOTE | 2018-05-28 16:20 | Physician Discharge Referral ---
Home Health/Hosp Referral Info Transfer to: Home Health Provider in Charge Post Discharge: PCP - Diagnosis (1) COPD (chronic obstructive pulmonary disease) Priority: Primary Status: Acute - Respiratory Orders Oxygen / L per min Smoking Cessation: Smoking cessation has been advised. For more information, call the [place] Tobacco Quit Line at 6-749-NLCK-NOW. - Transfer Medications Home Medications: Atorvastatin [Lipitor] 40 mg PO DAILY 02/24/15 [History] Cyanocobalamin (Vitamin B-12) [Vitamin B12] 1,000 mcg PO DAILY 03/17/17 [History] Multivitamin [Multivitamins] 1 cap PO DAILY 03/17/17 [History] Amantadine [Symmetrel] 100 mg PO BID 03/16/18 [History] Acetaminophen [Tylenol] 1,500 mg PO BID PRN 05/27/18 [History] Albuterol Sulfate [Ventolin Hfa] 2 puff IH QID PRN 05/27/18 [History] Budesonide/Formoterol 160/4.5 [Symbicort 160/4.5] 2 puff IH BID 05/27/18 [History] Ergocalciferol (VITAMIN D2) [Vitamin D2] 2,000 unit PO DAILY 05/27/18 [History] Finasteride [Proscar] 5 mg PO DAILY 05/27/18 [History] Levothyroxine Sodium [Levoxyl] 75 mcg PO DAILY 05/27/18 [History] Omeprazole [PriLOSEC] 20 mg PO DAILY 05/27/18 [History] Tamsulosin [Flomax] 0.4 mg PO DAILY 05/27/18 [History] Allergies/Adverse Reactions: Allergy/AdvReac Type Severity Reaction Status Date / Time No Known Allergies Allergy Verified 05/27/18 15:25 Certification: Further, I certify that my clinical findings support that this patient is homebound (i.e. absences from home require considerable and taxing effort and are for medical reasons or protestant services or infrequently or short duration when for other reasons) because: Homebound Reason: Patient requires assistance of a person or device to safely leave home, Post-surgery restriction and or conditions limit ability to leave home, Leaving home requires considerable and taxing effort due to condition Attestation: My signature below is to certify that this patient is under my care and that I, or nurse practitioner, or a physician's technical administrative assistant working with me, has a [id number] encounter with this patient.
--- NOTE | 2018-05-29 14:07 | Electrocardiograph Report ---
[address] [place], [place] [address] Test Date: 2018-05-24 Pat Name: [facility] Department: [id number] Room: 2A Gender: M [employer]: : 1945 Requested By: Bryan Gaitan Order Number: [id number] Reading MD: Sendy Garland Measurements Intervals [place] Rate: 88 P: 45 DC: 189 QRS: -11 QRSD: 109 T: 63 QT: 388 QTc: 470 Interpretive Statements Sinus rhythm Electronically Signed On 05-29-2018 14:05:55 EST by Sendy Garland
== END 2018-05-28 16:00 | disposition home or self-care (01) | DRG 193 ==
LOC: 2SOUTHHOLD 17:58 → EMEROOARM 17:58 → 2SOUTHHOLD 23:44 → SUATTDRO 05-25 17:44 → 2ANU 05-26 14:25
PROVIDERS: ADMIT Family Medicine; ATTEND Internal Medicine